=== PATIENT | male | born 1965 | race Caucasian/White ===

== ENCOUNTER 2019-04-14 20:20 | Emergency (ER) | payer BC ==
[2019-04-14] MEDS ORDERED: LEVALBUTEROL 1.25 MG/3 ML NEB ONE (21:16)
[2019-04-14 21:46] LABS: Absolute Lymphocytes (CBC) 1.7 K/uL (0.7-4.9); Absolute Monocytes 1.1 K/uL (0.1-1.3); Absolute Neutrophil 5.7 K/uL (1.8-8.0); Basophils % 0.8 % (0-1.3); Eosinophils % 1.1 % (0-4.4); Hematocrit 45.4 % (39.6-49.0); Lymphocytes % 19.8 % (15.3-44.8); MPV 9.5 fL (7.6-11.3); Monocytes % 12.6 % (3.3-12.3); RBC Red Blood Cell Count 4.82 M/uL (4.33-5.43)
[2019-04-14 21:47] LABS: Protime INR 0.95
[2019-04-14 22:02] LABS: ALT/SGPT 29 U/L (12-78); AST/SGOT 27 U/L (15-37); Albumin 4.1 g/dL (3.4-5.0); Alkaline Phosphatase 62 U/L (45-117); BUN Blood Urea Nitrogen 19 mg/dL (7-18); Bicarbonate 26 mmol/L (21-32); Bilirubin Total 0.4 mg/dL (0.2-1.0); Glucose Level 126 mg/dL (74-106); Magnesium 2.2 mg/dL (1.8-2.4); NT PRO-BNP 18 pg/mL (<125); Protein, Total 7.5 g/dL (6.4-8.2); Sodium Level 142 mmol/L (136-145); Troponin (Emerg Dept Use Only) < 0.02 ng/mL (0.0-0.045)
--- NOTE | 2019-04-14 22:25 | RAD REPORT ---
EXAM DESCRIPTION: Lynn Single View04/14/2019 9:50 pm CLINICAL HISTORY: Chest pain COMPARISON: 2017 FINDINGS: The lungs appear clear of acute infiltrate. The heart is normal size IMPRESSION: No acute abnormalities displayed
--- NOTE | 2019-04-14 23:18 | EDPHYS ---
Physician Documentation [facility] Name: Saleem Martines Age: 54 yrs Sex: Male : 1965 Arrival Date: 04/14/2019 Time: 20:23 Bed 6 Private MD: Mahamed Snyder E ED Physician Delano Barkley HPI: 04/14 21:14 This 54 yrs old Male presents to ER via Wheelchair with complaints of ps1 Palpitations, Chest Pain. 23:14 patient states that he has a reaction to breo that he takes for COPD intermittently. He ps1 was given an albuterol inhaler that he took earlier in the day and then started having palpitations. this is what happened with the breo. He denies chest pain and acknowledges palpitations. No pain. HR improved. . Historical: - Allergies: 20:50 Breo Ellipta; jd3 - Home Meds: 20:50 ProAir RespiClick inhalation inhalation [Active]; valsartan 160 mg oral tab 1 tab once jd3 daily [Active]; levothyroxine 137 mcg tab 1 tab once daily [Active]; - PMHx: 20:50 Hypertension; COPD; jd3 - PSHx: 20:50 Right ankle surgery; jd3 - Immunization history:: Adult Immunizations up to date. - Social history:: Smoking status: Patient/guardian denies using tobacco, the patient reports quitting approximately 5 years ago. - Ebola Screening: : Patient negative for fever greater than or equal to 101.5 degrees Fahrenheit, and additional compatible Ebola Virus Disease symptoms. ROS: 23:11 Constitutional: Negative for fever, chills, and weight loss, Eyes: Negative for injury, ps1 pain, redness, and discharge, ENT: Negative for injury, pain, and discharge, Respiratory: Negative for shortness of breath, cough, wheezing, and pleuritic chest pain, Abdomen/GI: Negative for abdominal pain, nausea, vomiting, diarrhea, and constipation, MS/Extremity: Negative for injury and deformity, Skin: Negative for injury, rash, and discoloration, Neuro: Negative for headache, weakness, numbness, tingling, and seizure. 23:11 Cardiovascular: Positive for palpitations. Exam: 23:11 Constitutional: This is a well developed, well nourished patient who is awake, alert, ps1 and in no acute distress. Head/Face: Normocephalic, atraumatic. Eyes: Pupils equal round and reactive to light, extra-ocular motions intact. Lids and lashes normal. Conjunctiva and sclera are non-icteric and not injected. Chest/axilla: Normal chest wall appearance and motion. Nontender with no deformity. No lesions are appreciated. Cardiovascular: Regular rate and rhythm. No gallops, murmurs, or rubs. Normal PMI, no JVD. No pulse deficits. Respiratory: Lungs have equal breath sounds bilaterally, clear to auscultation and percussion. No rales, rhonchi or wheezes noted. No increased work of breathing, no retractions or nasal flaring. Abdomen/GI: Soft, non-tender, with normal bowel sounds. No distension or tympany. No guarding or rebound. No evidence of tenderness throughout. Skin: Warm, dry with normal turgor. Normal color with no rashes, no lesions, and no evidence of cellulitis. MS/ Extremity: Pulses equal, no cyanosis. Neurovascular intact. Full, normal range of motion. Neuro: Awake and alert, GCS 15, oriented to person, place, time, and situation. Cranial nerves II-XII grossly intact. Sensory grossly intact. Vital Signs: 20:50 BP 130 / 77; Pulse 73; Resp 16 S; Temp 97.6(O); Pulse Ox 97% on R/A; Weight 104.33 kg jd3 (R); Height 5 ft. 11 in. (180.34 cm) (R); Pain 0/10; 21:25 BP 138 / 86; Pulse 72; Resp 16; Temp 97.6; Pulse Ox 99% on R/A; ak1 23:05 BP 116 / 92; Pulse 67; Resp 16; Temp 98.2(O); Pulse Ox 97% on R/A; Pain 0/10; ak1 20:50 Body Mass Index 32.08 (104.33 kg, 180.34 cm) jd3 MDM: 21:36 Patient medically screened. ps1 23:14 Data reviewed: vital signs, nurses notes. ps1 23:14 Data reviewed: lab test result(s), EKG, radiologic studies, and as a result, I will ps1 discharge patient. 23:18 ED course: patient had no adverse reaction to xopenex will dc with rx. . 04/14 21:20 Order name: CBC with Diff; Complete Time: :04/14 21:20 Order name: Magnesium; Complete Time: :04/14 21:20 Order name: NT PRO-BNP; Complete Time: :04/14 21:20 Order name: PT-INR; Complete Time: :04/14 21:20 Order name: Troponin (emerg Dept Use Only); Complete Time: :04/14 21:20 Order name: CMP; Complete Time: :04/14 21:20 Order name: XRAY Chest (1 view); Complete Time: 23:04/14 21:20 Order name: EKG; Complete Time: :04/14 21:20 Order name: Cardiac monitoring; Complete Time: :04/14 21:20 Order name: EKG - Nurse/Tech; Complete Time: :04/14 21:20 Order name: IV Saline Lock; Complete Time: :04/14 21:20 Order name: Labs collected and sent; Complete Time: :04/14 21:20 Order name: O2 Per Protocol; Complete Time: :04/14 21:20 Order name: O2 Sat Monitoring; Complete Time: : ps1 EC:11 Rate is 74 beats/min. Rhythm is regular. QRS Talmage is Normal. ME interval is normal. QRS ps1 interval is normal. QT interval is normal. Q waves are Old in lead V3. T waves are Normal. No ST changes noted. Clinical impression: Abnormal EKG without significant change. Interpreted by me. Administered Medications: 21:06 Drug: Xopenex 1.25 mg Route: Inhalation; ak1 Disposition: 04/14/19 23:17 Discharged to Home. Impression: Palpitations, Medication reaction. - Condition is Stable. - Discharge Instructions: Palpitations. - Prescriptions for Xopenex HFA 45 mcg/actuation Inhalation HFA aerosol inhaler - inhale 2 puff by INHALATION route every 4 hours; 1 Inhaler. - Medication Reconciliation Form, Thank You Letter, Antibiotic Education, Prescription Opioid Use form. - Follow up: Mahamed Snyder MD; When: As needed; Reason: Recheck today's complaints, Continuance of care, Re-evaluation by your physician. Follow up: Emergency Department; When: As needed; Reason: Worsening of condition. - Problem is new. - Symptoms have improved. Signatures: Dispatcher [employer] EDMS Niclo Rodriguez, RN RN ak1 Fili Cortes RN RN jd3 Delano Barkley MD MD ps1 Carol Lucas cc3 Corrections: (The following items were deleted from the chart) 23:37 23:17 04/14/2019 23:17 Discharged to Home. Impression: Palpitations; Medication cc3 reaction. Condition is Stable. Forms are Medication Reconciliation Form, Thank You Letter, Antibiotic Education, Prescription Opioid Use. Follow up: Mahamed Snyder; When: As needed; Reason: Recheck today's complaints, Continuance of care, Re-evaluation by your physician. Follow up: Emergency Department; When: As needed; Reason: Worsening of condition. Problem is new. Symptoms have improved. ps1
--- NOTE | 2019-04-14 23:18 | ER ---
Nurse's Notes [facility] Name: Saleem Martines Age: 54 yrs Sex: Male : 1965 Arrival Date: 04/14/2019 Time: 20:23 Bed 6 Private MD: Mahamed Snyder E Diagnosis: Palpitations;Medication reaction Presentation: 04/14 20:42 Presenting complaint: Patient states: "I had Grave's disease in the past the doctors jd3 thought I was having a heart attack. I had radiation and the thyroid no longer functions. today I had sudden sharp chest pain and pressure and my heart started racing after I took a puff of my pro air inhaler.". Transition of care: patient was not received from another setting of care. Onset of symptoms was April 14, 2019. Risk Assessment: Do you want to hurt yourself or someone else? Patient reports no desire to harm self or others. Initial Sepsis Screen: Does the patient meet any 2 criteria? No. Patient's initial sepsis screen is negative. Does the patient have a suspected source of infection? No. Patient's initial sepsis screen is negative. Care prior to arrival: None. 20:42 Method Of Arrival: Wheelchair jd3 20:42 Acuity: ROBERTO 3 jd3 Historical: - Allergies: 20:50 Breo Ellipta; jd3 - Home Meds: 20:50 ProAir RespiClick inhalation inhalation [Active]; valsartan 160 mg oral tab 1 tab once jd3 daily [Active]; levothyroxine 137 mcg tab 1 tab once daily [Active]; - PMHx: 20:50 Hypertension; COPD; jd3 - PSHx: 20:50 Right ankle surgery; jd3 - Immunization history:: Adult Immunizations up to date. - Social history:: Smoking status: Patient/guardian denies using tobacco, the patient reports quitting approximately 5 years ago. - Ebola Screening: : Patient negative for fever greater than or equal to 101.5 degrees Fahrenheit, and additional compatible Ebola Virus Disease symptoms. Screenin:25 Abuse screen: Denies threats or abuse. Denies injuries from another. Nutritional ak1 screening: No deficits noted. Tuberculosis screening: No symptoms or risk factors identified. Fall Risk None identified. Assessment: 21:23 General: Appears in no apparent distress. Behavior is calm, cooperative. Pain: ak1 Complains of pain in chest Pain does not radiate. Pain began today. Neuro: No deficits noted. Cardiovascular: Reports palpitations, shortness of breath, Heart tones S1 S2 present. Respiratory: Reports shortness of breath Airway is patent Breath sounds are clear. GI: No signs and/or symptoms were reported involving the gastrointestinal system. : No signs and/or symptoms were reported regarding the genitourinary system. EENT: No signs and/or symptoms were reported regarding the EENT system. Derm: No signs and/or symptoms reported regarding the dermatologic system. Musculoskeletal: No signs and/or symptoms reported regarding the musculoskeletal system. 23:04 Reassessment: Patient appears in no apparent distress at this time. No changes from ak1 previously documented assessment. Patient and/or family updated on plan of care and expected duration. Pain level reassessed. Patient is alert, oriented x 3, equal unlabored respirations, skin warm/dry/pink. 23:35 Reassessment: Patient appears in no apparent distress at this time. Patient and/or cc3 family updated on plan of care and expected duration. Pain level reassessed. Patient is alert, oriented x 3, equal unlabored respirations, skin warm/dry/pink. Dr. Barkley discharged the patient home with prescription given. IV cannula removed and patient left ER vitally stable and ambulatory with his . Patient denies pain at this time. Patient states feeling better. Patient states symptoms have improved. Vital Signs: 20:50 BP 130 / 77; Pulse 73; Resp 16 S; Temp 97.6(O); Pulse Ox 97% on R/A; Weight 104.33 kg jd3 (R); Height 5 ft. 11 in. (180.34 cm) (R); Pain 0/10; 21:25 BP 138 / 86; Pulse 72; Resp 16; Temp 97.6; Pulse Ox 99% on R/A; ak1 23:05 BP 116 / 92; Pulse 67; Resp 16; Temp 98.2(O); Pulse Ox 97% on R/A; Pain 0/10; ak1 20:50 Body Mass Index 32.08 (104.33 kg, 180.34 cm) jd3 ED Course: 20:23 Patient arrived in ED. es 20:24 Mahamed Snyder MD is Private Physician. es 20:36 Nicol Rodriguez, RN is Primary Nurse. ak1 20:41 Delano Barkley MD is Attending Physician. ps1 20:45 Triage completed. jd3 20:46 Initial lab(s) drawn, by me, held in ED. EKG done, by ED staff. Inserted saline lock: ak1 20 gauge in right antecubital area, using aseptic technique. Blood collected. Patient maintains SpO2 saturation greater than 95% on room air. 20:50 Arm band placed on. jd3 21:25 No provider procedures requiring assistance completed. ak1 21:25 Patient has correct armband on for positive identification. Placed in gown. Bed in low ak1 position. Call light in reach. Side rails up X 1. Adult w/ patient. quality assurance monitor chassis on. Pulse ox on. NIBP on. 21:50 XRAY Chest (1 view) In Process Unspecified. EDMS 23:17 Mahamed Snyder MD is Referral Physician. ps1 23:35 IV discontinued, intact, bleeding controlled, No redness/swelling at site. Pressure cc3 dressing applied. Administered Medications: 21:06 Drug: Xopenex 1.25 mg Route: Inhalation; ak1 Outcome: 23:17 Discharge ordered by . ps1 23:35 Discharged to home ambulatory, with family. cc3 23:35 Condition: stable 23:35 Discharge instructions given to patient, family, Instructed on discharge instructions, follow up and referral plans. medication usage, Demonstrated understanding of instructions, follow-up care, medications, Prescriptions given X 1. 23:37 Patient left the ED. cc3 Signatures: Dispatcher [employer] EDNM Lo Liu Nicol Rodriguez RN RN ak1 Fili Cortes RN RN jDelano Tillman MD MD ps1 Carol Lucas cc3
[2019-04-15 01:10] VITALS: BP 116/92; TEMP 98.2; O2SAT 97
--- NOTE | 2019-04-15 08:33 | EKG ---
Test Date: 2019-04-14 Test Time: 20:44:08 Bookstore Manager: BENIJE MEASUREMENT RESULTS: Intervals: Rate: 74 FL: 150 QRSD: 112 QT: 382 QTc: 424 [place]: P: 29 FL: 150 QRS: -20 T: 25 INTERPRETIVE STATEMENTS: Normal sinus rhythm Possible Anterior infarct, age undetermined Abnormal ECG Compared to ECG 12/10/2016 08:36:21 Myocardial infarct finding now present Electronically Signed On 04-15-19 08:32:41 CDT by Josh Holley
== END 2019-04-14 23:37 | disposition home or self-care (01) ==
LOC: ER 20:20
DX: R00.2 Palpitations (principal); T50.995A Adverse effect of other drugs, medicaments and biological substances, initial encounter; I10 Essential (primary) hypertension; J44.9 Chronic obstructive pulmonary disease, unspecified; Z88.8 Allergy status to other drugs, medicaments and biological substances
CPT/HCPCS: 36415; 71045; 80053; 83735; 83880; 84484; 85025; 85610; 93005; 99285